=== PATIENT | female | born 1960 | race American Indian/Alaskan Native ===

== ENCOUNTER 2017-10-19 11:02 | Day surgery (SDC) | payer MEDICAID ==
[~2017-10-19 11:02] MED LIST: BREVIBLOC IV ONE; XYLOCAINE MPF 2% ONE
[2017-10-19] MEDS ORDERED: NACL 0.9% 1000 ML 1,000 ML ONE ×2 (11:55→15:13)
[2017-10-19] MEDS ORDERED: DIPRIVAN 10 MG/ML IV ONE ×2 (12:39)
--- NOTE | 2017-10-19 14:34 | Anesthesia Consultation ---
Anesthesia Consult and Med Hx Date of service: 10/19/17 - Airway Anesthetic Teeth Evaluation: Good ROM Head & Neck: Adequate Mental/Hyoid Distance: Inadequate Mallampati Class: Class II Intubation Access Assessment: Probably Good - Pulmonary Exam CTA: Yes - Cardiac Exam Cardiac Exam: RRR - Pre-Operative Health Status ASA Pre-Surgery Classification: ASA2 Proposed Anesthetic Plan: MAC - Pulmonary Hx Smoking: No Hx Sleep Apnea: No - Cardiovascular System Hx Hypertension: No - Central Nervous System Hx Neuromuscular Disorder: No Hx Psychiatric Problems: No - Endocrine Hx Renal Disease: No Hx Insulin Dependent Diabetes: No - Hematic Hx Anemia: No Hx Sickle Cell Disease: No - Other Systems Hx Cancer: Yes (current chemo - 1 treatment left, bilat breast cancer)
--- NOTE | 2017-10-19 14:34 | Anesthesia Day of Surgery ---
Anesthesia Day of Surgery - Day of Surgery Patient Examined: Yes Patient H&P Reviewed: Yes Patient is NPO: Yes
[2017-10-19] MEDS ORDERED: WATER FOR IRRIG STERILE IR ONE (15:14)
--- NOTE | 2017-10-19 15:17 | Operative Report ---
Operative Report Operative Report: Date of procedure: 10/19/2017 Procedure: Colonoscopy with Snare polypectomy, Hot Biopsy Polypectomy, Submucosal injection and Hemoclip application. Attending physician: Oracio Bell MD User Experience Team Lead: Oracio Bell MD Indication: Patient is a 57-year-old female who presents for screening colonoscopy. This colonoscopy serves to evaluate patient so that treatment may be directed based on the findings. Consent: Informed consent was obtained after advising the patient and family regarding nature of this procedure, its indications, potential benefits as well as possible complications including but not limited to bleeding perforation and adverse reaction to medication, infection as well as other cardiopulmonary complications. An informed written and verbal consent was then obtained after due opportunity was provided for questions and answers. Monitoring: Patient was monitored continuously with pulse oximetry and electrocardiographic recordings as well as blood pressure recordings. Vital signs remained stable throughout this procedure with no untoward events. Preoperative assessment: Patient was assessed immediately prior to this procedure for capacity to tolerate monitored anesthesia care and moderate sedation as well as general anesthesia. Patient's ASA classification is 2, Mallampati class is 2, Hyomental distance is 3. Instrument: [employer] video colonoscope Medications: Propofol given intravenously in divided doses. For details please refer to anesthesia records. Description of procedure: Patient was placed in the left lateral decubitus position after achieving sedation, a digital rectal examination was performed following which the colonoscope was introduced into the anal verge and advanced to the cecum which was identified by the cecal valve, the appendiceal orifice, as well as by the cecal strap and direct transillumination. The colonoscope was subsequently withdrawn with careful inspection of all mucosal surfaces. Patient tolerated this procedure well and was subsequently taken to the recovery room. The following findings were noted. Findings: Patient had a flat polyp in the ascending colon which measured 5-6 mm. The polyp was injected with normal saline to elevate it and removed by hot biopsy polypectomy by the technique of avulsion . It was then retrieved. The polyp base was ablated and a hemoclip applied. There was a sessile 8-10 mm polyp in the descending colon which was elevated with submucosal injection of saline and removed by snare electrocautery and retrieved. There were a few scattered diverticula in the sigmoid colon. The rest of the colon to the cecum was normal. On the retroflex view at the anal verge, patient had prominent internal hemorrhoids. Impression: Descending colon polyp status post submucosal injection and snare polypectomy Ascending colon polyp status post Hot biopsy polypectomy and ablation and hemoclip application Diverticula disease of the colon. Internal hemorrhoids. Plan: Follow pathology report. High-fiber diet. Repeat colonoscopy in 5 years if polyps are adenomatous.
--- NOTE | 2017-10-19 15:18 | Discharge Summary ---
Short Stay Discharge Plan Activity: advance as tolerated Weight Bearing Status: Weight Bear as Tolerated Diet: regular Follow up with: CARMINE VAZQUEZ MD [Primary Care Provider] - 7 Days
--- NOTE | 2017-10-19 15:31 | Post Anesthesia Evaluation ---
- Post Anesthesia Evaluation Patient Participated: Yes Airway Patent: Yes Stable Respiratory Function: Yes Nausea/Vomiting: No Temp > 96.8F: Yes Pain Manageable: Yes Adequeate Hydration: Yes Anesthesia Complications: No Block Receding Appropriately: Not Applicable Patient on Ventilator: No
[2017-10-19 15:44] VITALS: BP 154/86
== END 2017-10-19 11:03 | disposition home or self-care (01) ==
LOC: GIO 11:02
PROVIDERS: ATTEND Internal Medicine Gastroenterology
DX: Z12.11 Encounter for screening for malignant neoplasm of colon (principal); D12.2 Benign neoplasm of ascending colon; D12.4 Benign neoplasm of descending colon; K57.30 Diverticulosis of large intestine without perforation or abscess without bleeding; K64.8 Other hemorrhoids; Z87.891 Personal history of nicotine dependence; Z85.3 Personal history of malignant neoplasm of breast; Z90.13 Acquired absence of bilateral breasts and nipples; Z92.21 Personal history of antineoplastic chemotherapy
CPT/HCPCS: 45381; 45384; 45385; 88305; J2704; J7030